=== PATIENT | female | born 1965 | race Caucasian/White ===

== ENCOUNTER 2024-11-02 16:40 | Emergency (ER) | payer OTHER ==
[~2024-11-02] VITALS: Ht 172.7 cm; Wt 73.2 kg
[2024-11-02 16:51] VITALS: BP 119/68; PULSE 60; RESP 16; O2SAT 100
[2024-11-02 18:09] VITALS: TEMP 97.8
== END 2024-11-02 18:12 | disposition home or self-care (01) ==
LOC: ER 16:41
DX: S06.0X0A Concussion without loss of consciousness, initial encounter (principal); W18.2XXA Fall in (into) shower or empty bathtub, initial encounter; Y92.89 Other specified places as the place of occurrence of the external cause; Y93.E1 Activity, personal bathing and showering; Y99.8 Other external cause status
CPT/HCPCS: 99281

== ENCOUNTER 2024-12-01 08:53 | Emergency (ER) | payer OTHER ==
[~2024-12-01] VITALS: Ht 172.7 cm; Wt 65.9 kg
[2024-12-01] MEDS ORDERED: TAM75C PO (12:28)
[2024-12-01 12:38] VITALS: BP 125/82; PULSE 76; RESP 16; TEMP 99.5; O2SAT 99
== END 2024-12-01 12:39 | disposition home or self-care (01) ==
LOC: ER 08:54
DX: J10.1 Influenza due to other identified influenza virus with other respiratory manifestations (principal); Z88.5 Allergy status to narcotic agent; Z79.899 Other long term (current) drug therapy; Z20.822 Contact with and (suspected) exposure to COVID-19
CPT/HCPCS: 36415; 87502; 87503; 87811; 99283